=== PATIENT | male | born 1985 | race African-American/Black ===

== ENCOUNTER 2017-03-31 10:02 | Observation (INO) | payer OTHER ==
--- NOTE | ~2017-03-31 | EEG ---
PATIENT:SANFORD MARKS DATE OF SERVICE: 03/31/17 MEDICAL RECORD: [id number] DATE OF : 81 LOCATION:D.212 D.M2 ADMISSION DATE: 03/31/17 REFERRING PHYSICIAN: INTERPRETING PHYSICIAN: KAILEE OLIVO MD DATE OF SERVICE: 04/01/2017 Electroencephalographic Report Referred by Dr. Garcia as an inpatient, currently in room 2124. ELECTROENCEPHALOGRAM NUMBER: [id number]. DATE OF EXAMINATION: 04/01/2017 at 2:10 p.m. TECHNICAL DATA: This electroencephalographic recording consists of approximately 20 minutes of data collection utilizing the international 10/20 system of electrode placement and both referential and non-referential montages. Sixteen channels of electrocerebral recording are accompanied by a 17th channel dedicated to the electrocardiographic rhythm and 2 channels of electromyographic recording. Recording is performed in the awake and sleep states utilizing activation by photic stimulation. ELECTROENCEPHALOGRAPHIC DATA: The awake state comprises approximately 30% of the recorded electrocerebral activity. Electromyographic artifact is prominent and rapid eye movements are seen. The posterior dominant background consists of a symmetric, rhythmic, waxing and waning 7-8 Hz alpha activity, which is suppressed by eye opening. The drowsy state comprises approximately 20% of the recorded electrocerebral activity. Electromyographic artifact is diminished and rapid eye movements are not seen. The posterior dominant background is relatively suppressed. The transition to stage II sleep, which comprises the remaining portion of the recorded electrocerebral activity is heralded by the appearance of typical 15 Hz sleep spindles. Sharp vertex waves are also occasionally seen. An intermittent, irregular, generalized and symmetric delta slowing in the range of 2-4 Hz occurs approximately once every 1-2 pages for periods of 2-3 seconds. No abnormal or focal slowing is identified. No epileptiform discharges are seen. Photic stimulation induces no abnormal change in the recorded electrocerebral activity. INTERPRETATION: Normal (awake and asleep). This is a normal electroencephalographic recording. TRANSINT:[id number] Voice Confirmation ID: [id number] DOCUMENT ID: [id number] ELECTROENCEPHALOGRAM REPORT [id number] SANFORD MARKS KAILEE OLIVO MD CC: [id number] DICTATION DATE: 04/02/17 0614 ADJUNCT FACULTY: 04/02/17 1436 DIS IN 04/01/17 [place] [address] [place] [address]
[2017-03-31 10:29] LABS: BASOPHILS 0.2 % (0-2); EOSINOPHILS 3.8 % (0-7); HEMATOCRIT 47.3 % (42.0-54.0); HEMOGLOBIN 16.7 g/dL (13.5-17.5); IMMATURE GRANULOCYTES 0.3 % (0-5); LYMPHOCYTES 34.6 % (15-50); MCH 31.9 pg (26.0-34.0); MCHC 35.3 g/dL (31.0-37.0); MCV 90.4 fL (80.0-100.0); MEAN PLATELET VOLUME 10.9 fL (7.4-10.4); MONOCYTES 7.3 % (2-11); NEUTROPHILS 53.8 % (40-80); PLATELET COUNT 248 10x3/uL (130-400); RBC 5.23 10x6/uL (4.20-6.10); RDW 12.4 % (11.5-14.5); WBC 6.3 10x3/uL (4.8-10.8)
[2017-03-31 10:43] LABS: ALBUMIN 3.9 g/dL (3.4-5.0); ALKALINE PHOSPHATASE 80 U/L (46-116); ALT (SGPT) 42 U/L (10-68); BILIRUBIN - TOTAL 0.58 mg/dL (0.2-1.3); CALC OSMOLALITY 276 mosm/kg (275-300); CALCIUM 9.2 mg/dL (8.5-10.1); CARBON DIOXIDE 27.1 mmol/L (21.0-32.0); CHLORIDE - SERUM 102 mmol/L (98-107); CREATININE - SERUM 1.1 mg/dL (0.6-1.3); GLUCOSE 111 mg/dL (74-106); POTASSIUM - SERUM 3.4 mmol/L (3.5-5.1); PROTEIN - SERUM 8.1 g/dL (6.4-8.2); SODIUM 138 mmol/L (136-145); UREA NITROGEN 12 mg/dL (7-18); eGFR NON AFRICAN AMERICAN 81 mL/min (90-120)
[2017-03-31 10:54] LABS: TROPONIN-I < 0.017 ng/mL (0.000-0.060)
--- NOTE | 2017-03-31 14:14 | NUR ---
RECIEVED FROM ER. DENIES ANY NEEDS. CALL LIGHT IN REACH WITH SR UP. TELEMERTY SHOWS SR AT 70. SL TO LEFT FA. WILL MONITOR
[2017-03-31 16:41] VITALS: BP 125/80
--- NOTE | 2017-03-31 18:26 | NUR ---
LYING QUIETLY. DENIES ANY FUTHER DIZZINESS. TELEMERTY SHOWS SR. WILL MONITOR
[2017-03-31 22:47] VITALS: BP 142/86
--- NOTE | 2017-04-01 01:18 | NUR ---
THIS SHIFT, PT IS ALERT, AND ORIENTED X3. NEURO CHECKS UNCHANGED. RESTING QUIELTY WITHOUT COMPLAINTS
[2017-04-01 01:51] VITALS: BP 125/79
[2017-04-01 05:02] LABS: BASOPHILS 0.3 % (0-2); HEMATOCRIT 46.7 % (42.0-54.0); HEMOGLOBIN 16.3 g/dL (13.5-17.5); IMMATURE GRANULOCYTES 0.5 % (0-5); LYMPHOCYTES 35.9 % (15-50); MCH 31.9 pg (26.0-34.0); MCHC 34.9 g/dL (31.0-37.0); MCV 91.4 fL (80.0-100.0); MEAN PLATELET VOLUME 10.9 fL (7.4-10.4); MONOCYTES 7.7 % (2-11); NEUTROPHILS 49.6 % (40-80); PLATELET COUNT 236 10x3/uL (130-400); RBC 5.11 10x6/uL (4.20-6.10); RDW 12.7 % (11.5-14.5); WBC 6.5 10x3/uL (4.8-10.8)
[2017-04-01 05:13] VITALS: BP 116/75
[2017-04-01 05:33] LABS: CALC OSMOLALITY 275 mosm/kg (275-300); CALCIUM 8.9 mg/dL (8.5-10.1); CHLORIDE - SERUM 103 mmol/L (98-107); CREATININE - SERUM 1.1 mg/dL (0.6-1.3); GLUCOSE 98 mg/dL (74-106); POTASSIUM - SERUM 3.7 mmol/L (3.5-5.1); SODIUM 138 mmol/L (136-145); T4 THYROXIN - FREE 1.02 ng/dL (0.76-1.46); THYROID STIMULATING HORMONE 1.05 uIU/mL (0.36-3.74); UREA NITROGEN 13 mg/dL (7-18); eGFR NON AFRICAN AMERICAN 81 mL/min (90-120)
--- NOTE | 2017-04-01 07:10 | NUR ---
RESTING QUIETLY EYES CLOSED RESP UNLABORED NAD NOTED
--- NOTE | 2017-04-01 07:51 | NUR ---
ASSESSMENT COMPLETED. TELEMERTY SHOWS SR AT 75 . LEFT FA SL. DENIES ANY DIZZINESS. WILL MONITOR
--- NOTE | 2017-04-01 08:07 | HP ---
PATIENT: SANFORD MARKS MEDICAL RECORD: [id number] ACCOUNT: [id number] LOCATION:[address] : [birth year] ADMISSION DATE: 03/31/17 HISTORY AND PHYSICAL EXAMINATION REASON FOR ADMISSION: Pending episode. HISTORY OF PRESENT ILLNESS: The patient is a 32-year-old -[place]er male who works in [employer] at [employer]. He said he was preparing beans in the cafeteria when he did not feel good he felt lightheaded, his vision began to go and he turned around to empty some cans of beans in the trash and he fell. He said he grabbed on the sink as he fell and hit his head. He thinks he may have lost consciousness temporarily. There was no seizure activity noted. No witnesses. He now feels somewhat nauseated in the ED. Denies any previous history of syncope, though he said that when he was 7 or 8 years old, he had a heart surgery for unknown reasons. 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 Otherwise, he has been fairly healthy all of his life except for having had borderline hypertension which has never been treated for. Denies any history of head injury, seizures or loss of consciousness previously. He states he has been eating and drinking normally, has not been fatigued or overexerted. 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 PAST SURGICAL HISTORY: He had some type of chest procedure done on his heart and he is not sure what it was. ALLERGIES: PENICILLIN. MEDICATION: Takes Claritin p.r.n. SOCIAL HISTORY: Nonsmoker, nondrinker. He is single and works in [employer]. He is a high school graduate. FAMILY HISTORY: Mother with hypertension, CHF, she is 60 years old. Father's health is fine as far as he knows. Paternal grandfather had heart disease. Paternal aunt had diabetes. REVIEW OF SYSTEMS: GENERAL: He has felt well until today. He has had no fever, weight change or loss of appetite. HEENT: No recent visual change. He has had sinus congestion, no sore throat. Has a little bit of right frontal headache since his fall. Denies hearing loss. RESPIRATORY: Occasional shortness of breath when he exerts himself, but no cough, sputum production or history of severe lung disease. CARDIAC: No recent palpitations, claudication or exertional chest pain. GASTROINTESTINAL: No nausea, vomiting, change in stool, blood per rectum. GENITOURINARY: No incontinence, dysuria or nocturia. MUSCULOSKELETAL: Does complain of intermittent cervical neck pain and previous CT did show some C4-C5 degenerative disc disease and osteophytes. He has no radiculopathy. NEUROLOGIC: No Prior history of vascular headaches, loss of consciousness, head injury, seizures. HISTORY AND PHYSICAL [id number] SANFORD MARKS INTEGUMENT: No rash or itching. PSYCHIATRIC: Denies depressed mood. PHYSICAL EXAMINATION: GENERAL: Alert 32-year-old -[place]er male at this time in no distress. He is supine in the ED, has some mild nausea. VITAL SIGNS: Heart rate is 60 and regular, respirations are 18, and sat 100% on room air, blood pressure 140/104. GENERAL: Alert and oriented. HEENT: Normocephalic. He has slight bruising over his right frontal scalp. Eyes: Pupils are equal, reactive. Disks are sharp. EOMI, vision intact. Oropharynx unremarkable. NECK: Supple, without bruits or masses. CHEST: Clear. HEART: Regular rate without MGR. PMI appropriate. He has a healed 1 inch scar underneath his left breast from previous chest surgery appears. LUNGS: Clear throughout. ABDOMEN: Soft, nontender, no organomegaly. GENITOURINARY: Deferred. EXTREMITIES: No CC&E. NEUROLOGIC: He is oriented to person, place, and time. Memory is intact. He has good layer out plate glass in his upper extremities. Good strength in his lower extremities. No localizing neurological or motor deficits are appreciated. Sensory is intact. PSYCHIATRIC: Denies depress mood. LABORATORY DATA: White count 6300 with normal diff, platelet count 248,000, H&H is 16.7 and 47.3. Potassium is low at 3.4, sodium 134, BUN and creatinine are 12 and 1.1, glucose 111. Liver function normal. AST of 59, mildly elevated. Urinalysis is pending. EKG: Sinus rhythm. CT of the head is normal. CT of the C-spine shows reversal of the cervical curve. At C3-C4, there is prominent left paracentral disc protrusion and osteophyte formation causing moderate left greater than right spinal canal narrowing. ASSESSMENT: 1. Near syncopal episode. 2. C3-C4 paracentral disc protrusion osteophyte formation, hypokalemia, questionable history of arrhythmia, over ideal body weight, allergic rhinitis. PLAN: The patient will be admitted to cardiac monitored floor and obtain echocardiogram to rule out cardiac abnormalities. We will replace potassium. Treat hypertension if indicated. Further workup pending clinical course. TRANSINT:[id number] Voice Confirmation ID: [id number] DOCUMENT ID: [id number] HISTORY AND PHYSICAL [id number] SANFORD MARKS TIMOTHY MD at 0807 CC: [id number] DICTATION DATE: 03/31/17 1355 ENROLLMENT SERVICES DEAN: 03/31/17 1801 ADM IN [place] [id number] [place] [address]
[2017-04-01 08:25] VITALS: BP 155/97
--- NOTE | 2017-04-01 08:26 | CN ---
PATIENT NAME:SANFORD MARKS MEDICAL RECORD: [id number] : 81 LOCATION:[facility].2124 ADMIT DATE: 03/31/17 ACCOUNT: [id number] CONSULTING PHYSICIAN: SAROJ LEE MD REFERRING PHYSICIAN: TROY SIFUENTES MD DATE OF CONSULTATION: 03/31/2017 HISTORY OF PRESENT ILLNESS: A 32-year-old gentleman with no significant past medical history, who was at work today, was cooking and had a syncopal episode. He felt somewhat nauseated and queasy, reports of not feeling well for the past couple of days. No palpitations or flutter prior. We are asked to see him concerning his cardiovascular status. PAST MEDICAL HISTORY: Nonsignificant. SOCIAL HISTORY: He lives here in [place]. He is a nonsmoker, works. No illicit drug use. MEDICATIONS: No prescription medicines. ALLERGIES: PENICILLIN. REVIEW OF SYSTEMS: The patient reports easy bruising but reports no swollen glands. The patient reports no fever, no night sweats, no significant weight gain, no significant weight loss. No significant exercise tolerance. The patient reports no dry eyes, no irritation, no vision change. Patient reports no difficulty hearing and no ear pain. Patient reports no frequent nose bleeds or nose and sinus problems. Patient reports on arm pain on exertion. No shortness of breath while lying down. No history of heart murmur. Patient reports no cough, no wheezing or coughing up blood. Patient reports no abdominal pain, no vomiting. Normal appetite. No diarrhea and not vomiting blood. No nausea and no constipation. Patient reports no incontinence. No difficulty urinating. No hematuria. No increased frequency. Patient reports no muscle aches. No weakness, no arthralgias, no back pain. No swelling of the extremities. Patient reports no abnormal mole, no jaundice, no rashes. Reports no loss of consciousness. No weakness and no numbness. No seizures, dizziness, or headaches. The patient reports no depression, no sleep disturbance, feeling safe in a relationship and no alcohol abuse. Patient reports on fatigue. Reports no runny nose or sinus pressure. No itching, no hives, and no frequent sneezing. PHYSICAL EXAMINATION: GENERAL: Pleasant gentleman, in no acute distress. VITAL SIGNS: Blood pressure 118/64, pulse 64 and regular. HEENT: Normocephalic, atraumatic. NECK: No JVD or bruit. HEART: Regular. LUNGS: Jordan are clear. ABDOMEN: Soft, nontender. EXTREMITIES: Pulses 2+. No edema. NEUROLOGIC: Grossly intact. DIAGNOSTIC DATA: ECG without acute changes. Echocardiographic study was reviewed, this shows normal LV function with no significant pathology. Both studies are normal. CONSULT REPORT [id number] SANFORD MARKS IMPRESSION: Syncope. I agree with current management. I suspect vasovagal historically. Further recommendations based on clinical course. TRANSINT:[id number] Voice Confirmation ID: [id number] DOCUMENT ID: [id number] SAROJ LEE MD at 0826 CC: [id number] DICTATION DATE: 03/31/17 1547 SCHOOL ATHLETIC DIRECTOR: 04/01/17 0044 ADM IN [facility] [address] [place] [address]
[2017-04-01 11:30] VITALS: BP 117/69; BP 143/93
[2017-04-01 12:42] LABS: APPEARANCE CLEAR (CLEAR); BILIRUBIN NEGATIVE (NEGATIVE); COLOR YELLOW (YELLOW); GLUCOSE NEGATIVE (NEGATIVE); KETONE NEGATIVE (NEGATIVE); LEUKOCYTE ESTERASE TRACE (NEGATIVE); NITRITE NEGATIVE (NEGATIVE); PROTEIN NEGATIVE (NEGATIVE); SPECIFIC GRAVITY 1.015 (1.005-1.020); UROBILINOGEN NORMAL (NORMAL)
[2017-04-01 12:43] LABS: BACTERIA FEW /hpf (NONE SEEN); EPITHELIAL CELLS 0-5 /hpf (0-5); MUCUS >1+ /lpf (NONE SEEN); RED CELLS - URINE RARE /hpf (0-5)
[2017-04-01 12:50] LABS: UDS - AMPHET NEGATIVE QUAL (NEGATIVE); UDS - BARB NEGATIVE QUAL (NEGATIVE); UDS - BENZO NEGATIVE QUAL (NEGATIVE); UDS - COCAINE NEGATIVE QUAL (NEGATIVE); UDS - METH NEGATIVE QUAL (NEGATIVE); UDS - OPIATE NEGATIVE QUAL (NEGATIVE); UDS - PCP NEGATIVE QUAL (NEGATIVE); UDS - THC NEGATIVE QUAL (NEGATIVE)
--- NOTE | 2017-04-01 13:21 | NUR ---
WALKING IN HALLWAY. DENIES ANY NEEDS. BACK TO ROOM WITH CALL LIGHT IN REACH AND SR UP
--- NOTE | 2017-04-01 16:36 | EC ---
PATIENT:SANFORD MARKS DATE OF SERVICE: 03/31/17 SEX: M MEDICAL RECORD: [id number] DATE OF : [birth year] LOCATION:D.M2 D.212 AGE OF PATIENT: 32 ADMISSION DATE: 03/31/17 REFERRING PHYSICIAN: INTERPRETING PHYSICIAN: OFELIA VELIZ MD ECHOCARDIOGRAM REPORT ECHO CHARGES 4 ECHO COMPLETE CLINICAL DIAGNOSIS: BUBBLE STUDY TO ASSESS FOR SEPTAL DEFECTS DUE TO SYNCOPE AND HX OF PEDIATRIC HEART SURGERY ECHOCARDIOGRAPHIC MEASUREMENTS (adult normal given) AC root (d.<3.7cm) 3.4 LV Septum d (<1.2 cm> 1.3 Valve Excursion LV Septum (systole) 1.4 Left Atria (s.<4.0cm> 3.4 LVPW d(<1.2cm) 1.7 RV (d.<2.3cm) 3.5 LVPW (sytole) 1.8 LV diastole(<5.6CM) 4.2 MV E-F(>70mm/sec) LV systole 3.0 LVOT Diameter 1.6 MV exc.(>10mm) 1.3 Est.ejection fraction (50-75%) Pericardial Effusion N DOPPLER: LVIT A 56.0 E 87.0 LA RVSP 28 LVOT 104 AOP1/2T Asc. Ao 124 RVOT 49 RA PA 119 AV Gradient Peak 6.16 AV Mean 3.57 AV Area 1.7 MV Gradient Peak 5.0 MV Mean 1.37 MV Area COMMENTS: Audio Visual Collections Coordinator: Ronnie MALIK Strategic Planning Analyst:Dona Velasquez TAPE# PACS DATE OF SERVICE: 03/31/2017 Echocardiogram FINDINGS: 1. Left ventricle chamber size is within normal limits. Left ventricular systolic function is normal. Overall ejection fraction estimated at 60%. 2. Left atrium is within normal limits at 3.6 cm. Right atrium and right ECHOCARDIOGRAM REPORT [id number] SANFORD MARKS ventricular chamber sizes are mildly dilated. 3. Valvular structures have normal structure and motion. 4. Doppler interrogation only reveals trace mitral regurgitation, mild tricuspid regurgitation, no other valvular insufficiency or stenosis. Pulmonary systolic pressure is normal estimated at 28 mmHg. 5. No evidence of pericardial effusion or left ventricular thrombus. 6. Bubble study was performed, this is normal, no evidence of right to left or left to right shunt. TRANSINT:[id number] Voice Confirmation ID: [id number] DOCUMENT ID: [id number] OFELIA VELIZ MD at 1636 CC: [id number] DICTATION DATE: 03/31/17 1629 TOOL STRAIGHTENER: 03/31/17 1714 ADM IN [place] [id number] [place] [id number]
--- NOTE | 2017-04-01 16:37 | NUR ---
REFUSES SCD'S. UP AMBULATING HALLWAYS
[2017-04-01] MEDS ORDERED: ZESTRIL10 MG PO (17:48)
--- NOTE | 2017-04-01 18:27 | NUR ---
LYING QUIETLY. DR SIFUENTES HERE. WILL MONITOR
--- NOTE | 2017-04-01 20:51 | NUR ---
IV- REMOVED, CATH. INTACT, TELEMTRY, REMOVED, DISCHARGE INSTRUCTION GIVEN, DISCHARGED HOME
== END 2017-04-01 20:53 | disposition home or self-care (01) ==
LOC: D.ER 10:02 → D.M2 12:43 → OBSVTIME 12:43 → D.M2 12:43
PROVIDERS: Emergency Medicine; ADMIT Family Medicine
DX: R55 Syncope and collapse (principal); W18.39XA Other fall on same level, initial encounter; E87.6 Hypokalemia; J30.9 Allergic rhinitis, unspecified; M50.21 Other cervical disc displacement, high cervical region; M25.78 Osteophyte, vertebrae

== ENCOUNTER 2019-01-18 02:35 | Inpatient (IN) | payer SELFPAY ==
[2019-01-18] VITALS (7 sets, daily range): BP systolic 128–176; BP diastolic 83–106; BMI 35.3
[~2019-01-18] VITALS: Ht 170.2 cm; Wt 102.1 kg
[~2019-01-18 02:35] MED LIST: ZESTRIL10 MG PO
[2019-01-18 03:25] LABS: BASOPHILS 0.1 % (0-2); HEMATOCRIT 42.7 % (42.0-54.0); IMMATURE GRANULOCYTES 0.2 % (0-5); LYMPHOCYTES 18.2 % (15-50); MCH 31.4 pg (26.0-34.0); MCHC 35.1 g/dL (31.0-37.0); MCV 89.3 fL (80.0-100.0); MEAN PLATELET VOLUME 10.4 fL (7.4-10.4); MONOCYTES 3.6 % (2-11); NEUTROPHILS 76.9 % (40-80); PLATELET COUNT 241 10x3/uL (130-400); RBC 4.78 10x6/uL (4.20-6.10); RDW 12.7 % (11.5-14.5); WBC 8.3 10x3/uL (4.8-10.8)
[2019-01-18 03:40] LABS: APTT 24.3 SECONDS (22.8-39.4); INR 1.06 (0.85-1.17); PROTIME 13.3 SECONDS (11.6-15.0)
[2019-01-18 03:48] LABS: ALBUMIN 3.9 g/dL (3.4-5.0); ALKALINE PHOSPHATASE 82 U/L (46-116); ALT (SGPT) 48 U/L (10-68); BILIRUBIN - TOTAL 0.28 mg/dL (0.2-1.3); CALC OSMOLALITY 283 mosm/kg (275-300); CALCIUM 8.7 mg/dL (8.5-10.1); CARBON DIOXIDE 24.8 mmol/L (21.0-32.0); CHLORIDE - SERUM 103 mmol/L (98-107); CREATININE - SERUM 1.3 mg/dL (0.6-1.3); GLUCOSE 194 mg/dL (74-106); POTASSIUM - SERUM 3.6 mmol/L (3.5-5.1); PROTEIN - SERUM 8.1 g/dL (6.4-8.2); SODIUM 140 mmol/L (136-145); UREA NITROGEN 13 mg/dL (7-18); eGFR NON AFRICAN AMERICAN 67 mL/min (90-120)
[2019-01-18 04:01] LABS: CKMB 14.1 U/L (0.0-3.6); MAGNESIUM - SERUM 1.8 mg/dL (1.8-2.4)
[2019-01-18 04:02] LABS: CREATINE KINASE 8023 UL (21-232); TROPONIN-I < 0.017 ng/mL (0.000-0.060)
--- NOTE | 2019-01-18 07:10 | NUR ---
AWAKE AND ALERT. SITTING ON THE SIDE OF THE BED. STATE THAT HE IS STILL HURTING AND HAVING INCREASED PAIN WITH MINIMUM MOVEMENT. VVS. PIV TO RAC PATENT. 2ND BAG OF NS BOLUS COMPLETE. NEW BAG OF NS STARTED PER ORDERS TO RUN AT 125 ML/HR. COMFIRMED WITH PT THAT LAST MORPHINE DOSE WAS AT 0347 AND HAS BEEN ORDERED FOR Q4HRS. HE AND HIS FATHER UNDERSTAND THAT NEXT DOSE CAN BE AT 0747. HE REPORTS SOME IMPROVEMENT AND CURRENTLY RATES PAIN AT 7/10. AWAITING ROOM ASSIGNMENT FOR ADMISSION.
--- NOTE | 2019-01-18 08:45 | NUR ---
RECEIVED TO ROOM 2203 VIA WC FROM ER. A/O X3. C/O PAIN TO LEFT NECK AND SHOULDER. WAS GIVEN MORPHINE IN ER. WILL MONITOR. SKIN IS INTACT WITHOUT REDNESS. IV TO RIGHT AC IS PATENT WITHOUT REDNESS AT INSERTION SITE. BREAKFAST SERVED IN ROOM. ATE ONLY A FEW BITES. DENIES NEEDS. BP IS ELEVATED, WILL MONITOR.
--- NOTE | 2019-01-18 18:00 | NUR ---
ATE PART OF SOUP FOR SUPPER. KEPT TRAY FOR LATER. URINE SPECIMEN COLLECTED AND SENT TO LAB.
[2019-01-18 18:46] LABS: UDS - AMPHET NEGATIVE QUAL (NEGATIVE); UDS - BARB NEGATIVE QUAL (NEGATIVE); UDS - BENZO NEGATIVE QUAL (NEGATIVE); UDS - COCAINE NEGATIVE QUAL (NEGATIVE); UDS - OPIATE POSITIVE QUAL (NEGATIVE); UDS - PCP NEGATIVE QUAL (NEGATIVE); UDS - THC NEGATIVE QUAL (NEGATIVE)
[2019-01-19] VITALS: BP 170/99
--- NOTE | 2019-01-19 03:00 | NUR ---
I have reviewed this patient and I concur with the Shift Assessment completed by the Licensed Practical Nurse today this shift.
[2019-01-19 03:52] LABS: BASOPHILS 0 % (0-2); EOSINOPHILS 0 % (0-7); HEMATOCRIT 40.6 % (42.0-54.0); HEMOGLOBIN 14.1 g/dL (13.5-17.5); IMMATURE GRANULOCYTES 0.2 % (0-5); LYMPHOCYTES 10.7 % (15-50); MCH 31.4 pg (26.0-34.0); MCHC 34.7 g/dL (31.0-37.0); MCV 90.4 fL (80.0-100.0); MEAN PLATELET VOLUME 10.2 fL (7.4-10.4); MONOCYTES 5.2 % (2-11); NEUTROPHILS 83.9 % (40-80); PLATELET COUNT 250 10x3/uL (130-400); RBC 4.49 10x6/uL (4.20-6.10)
[2019-01-19 03:54] LABS: WBC 15.9 10x3/uL (4.8-10.8)
[2019-01-19 04:00] VITALS: BP 186/107
[2019-01-19 04:16] LABS: ALBUMIN 3.3 g/dL (3.4-5.0); ALKALINE PHOSPHATASE 72 U/L (46-116); ALT (SGPT) 50 U/L (10-68); BILIRUBIN - TOTAL 0.25 mg/dL (0.2-1.3); CALCIUM 7.9 mg/dL (8.5-10.1); CARBON DIOXIDE 23.5 mmol/L (21.0-32.0); CHLORIDE - SERUM 106 mmol/L (98-107); CKMB 29.7 U/L (0.0-3.6); POTASSIUM - SERUM 4.1 mmol/L (3.5-5.1); PROTEIN - SERUM 7.3 g/dL (6.4-8.2); SODIUM 139 mmol/L (136-145); UREA NITROGEN 13 mg/dL (7-18)
[2019-01-19 04:18] LABS: CALC OSMOLALITY 278 mosm/kg (275-300); CREATINE KINASE 6471 UL (21-232); CREATININE - SERUM 0.9 mg/dL (0.6-1.3); GLUCOSE 118 mg/dL (74-106); eGFR NON AFRICAN AMERICAN > 90 mL/min (90-120)
[2019-01-19 08:06] VITALS: BP 168/126
--- NOTE | 2019-01-19 08:43 | NUR ---
RESTING QUIETLY IN BED. DENIES NEEDS. LUNGS ARE CLEAR BIALTERALLY, NO COUGH NOTED.SKIN IS INTACT WITHOUT REDNESS. IV TO RIGHT AC IS PATENT WITHOUT REDNESS AT INSERTION SITE. ABLE TO MOVE LEFT ARM FORWARD THIS AM. DENIES NEEDS.
--- NOTE | 2019-01-19 09:00 | NUR ---
BP IS 154/130. GIVEN SCHEDULED LISINIPRIL PO. WILL MONITOR.
--- NOTE | 2019-01-19 10:10 | NUR ---
REQUESTED AND GIVEN 4MG MORPHIINE SLOW IVP FOR C/O LEFT SHOULDER NECK PAIN LEVEL 8. WILL MONITOR.
--- NOTE | 2019-01-19 10:15 | NUR ---
BP IS UP TO 172/105. SPOKE WITH PROSPER JOHNSON APN. ADONAY LOYD FOR NORVASC. GIVEN 10MG PO FOR SAME. WILL MONITOR.
[2019-01-19 10:23] VITALS: BMI 35.2
--- NOTE | 2019-01-19 11:00 | NUR ---
BP DOWN TO 145/93. REPORTS PAIN IMPROVED TO 4. WILL CONTINUE TO MONITOR.
[2019-01-19 12:53] VITALS: BP 173/112
--- NOTE | 2019-01-19 14:20 | NUR ---
ATE OVER HALF OF LUNCH. BP IS UP TO 173/112. REQUESTED AND GIVEN 4 MG MORPHINE SLOW IVP FOR PAIN LEVEL 10. WILL MONITOR. SISTER AT BEDSIDE.
[2019-01-19 15:50] VITALS: BP 169/108
--- NOTE | 2019-01-19 18:31 | NUR ---
SITTING UP IN BED EATING SECOND DINNER. DENIES NEEDS. NO CHANGES NOTED. DR. ZHU WAS AWARE OF ELEVATED BP AND NEW ORDERS RECEIVED.
--- NOTE | 2019-01-19 18:37 | NUR ---
REQUESTED AND GIVEN ONE HYDROCODONE PO FOR C/O LEFT SHOULEDER PAIN LEVLE 8. WILL MONITOR.
[2019-01-19 20:00] VITALS: BP 158/96
[2019-01-19 20:11] LABS: APPEARANCE CLEAR (CLEAR); COLOR STRAW (YELLOW)
[2019-01-19 20:12] LABS: BILIRUBIN NEGATIVE (NEGATIVE); GLUCOSE NEGATIVE (NEGATIVE); KETONE NEGATIVE (NEGATIVE); NITRITE NEGATIVE (NEGATIVE); PROTEIN NEGATIVE (NEGATIVE); UROBILINOGEN NORMAL (NORMAL)
[2019-01-20] VITALS: BP 149/105
[2019-01-20 04:00] VITALS: BP 157/110
[2019-01-20 05:43] LABS: BASOPHILS 0.2 % (0-2); EOSINOPHILS 1.2 % (0-7); HEMATOCRIT 41.8 % (42.0-54.0); HEMOGLOBIN 14.3 g/dL (13.5-17.5); IMMATURE GRANULOCYTES 0.4 % (0-5); LYMPHOCYTES 27.3 % (15-50); MCH 31.2 pg (26.0-34.0); MCHC 34.2 g/dL (31.0-37.0); MCV 91.3 fL (80.0-100.0); MEAN PLATELET VOLUME 11.2 fL (7.4-10.4); MONOCYTES 6.9 % (2-11); PLATELET COUNT 245 10x3/uL (130-400); RBC 4.58 10x6/uL (4.20-6.10); RDW 13.2 % (11.5-14.5); WBC 12.2 10x3/uL (4.8-10.8)
--- NOTE | 2019-01-20 06:00 | NUR ---
I have reviewed this patient and I concur with the Shift Assessment completed by the Licensed Practical Nurse today this shift.
[2019-01-20 06:34] LABS: CALC OSMOLALITY 278 mosm/kg (275-300); CALCIUM 7.9 mg/dL (8.5-10.1); CARBON DIOXIDE 24.9 mmol/L (21.0-32.0); CHLORIDE - SERUM 105 mmol/L (98-107); CKMB 22.4 U/L (0.0-3.6); CREATININE - SERUM 0.9 mg/dL (0.6-1.3); GLUCOSE 95 mg/dL (74-106); POTASSIUM - SERUM 3.7 mmol/L (3.5-5.1); SODIUM 140 mmol/L (136-145); UREA NITROGEN 12 mg/dL (7-18); eGFR NON AFRICAN AMERICAN > 90 mL/min (90-120)
[2019-01-20 06:35] LABS: CREATINE KINASE 7198 UL (21-232)
--- NOTE | 2019-01-20 08:04 | NUR ---
PT ALERT X 4. BREATH SOUNDS CLEAR BILAT. PAIN OF 8/10, PREVIOUSLY MEDICATED PER ORDERS, WILL MONITOR. IV TO LEFT AC, PATENT, DRESSING CLEAN DRY AND INTACT. PT REPORTS URINATING REGULARLY. BED LOW, CALL LIGHT IN REACH. NO OTHER NEEDS AT THIS TIME.
[2019-01-20 08:05] LABS: ALBUMIN 3.3 g/dL (3.4-5.0); BILIRUBIN - DIRECT 0.06 mg/dL (0.00-0.30); BILIRUBIN - INDIRECT 0.09 mg/dL (0.00-1.00); BILIRUBIN - TOTAL 0.15 mg/dL (0.2-1.3); PROTEIN - SERUM 6.9 g/dL (6.4-8.2)
[2019-01-20 08:22] VITALS: BP 167/115
[2019-01-20 10:17] VITALS: Ht 170.2 cm; Wt 102.1 kg
[2019-01-20 13:59] VITALS: BP 151/106
[2019-01-20 17:13] VITALS: BP 148/98
--- NOTE | 2019-01-20 19:30 | NUR ---
PT SITTING UP IN BED, NO SIGNS OF DISTRESS. ALERT AND ORIENTED. PT STATES PAIN 5/10. DENIES NEED FOR PAIN MED AT THIS TIME, PREVIOUSLY MEDICATED BEFORE THIS NURSE RECIEVED PT. IV RIGHT AC INFUSING BICARB @ 150. NO REDNESS OR SWELLING AT INSERTION SITE, DRESSING CDI. FAMILY AT BEDSIDE. CL IN REACH, WILL CONTINUE TO MONITOR
[2019-01-20 19:54] VITALS: BP 153/103
--- NOTE | 2019-01-20 20:30 | NUR ---
PT STATES PAIN 06/30. GAVE NORCO ORDERED. STATES NO OTHER NEEDS AT THIS TIME. CL IN REACH, WILL CONTINUE TO MONITOR
[2019-01-21] VITALS: BP 150/97
--- NOTE | 2019-01-21 00:15 | NUR ---
PT STATES PAIN 10/10 IN SHOULDER. GAVE MORPHINE ORDERED. WILL CONTINUE TO MONITOR
--- NOTE | 2019-01-21 03:40 | NUR ---
ASSISTED PT W/ SHOWER SET UP. PT SHOWERED. PAIN 07/31 AFTER. GAVE NORCO ORDERED. NO OTHER NEEDS OR COMPLAINTS AT THIS TIME. CL IN REACH, WILL CONTINUE TO MONITOR
[2019-01-21 03:58] VITALS: BP 168/115
[2019-01-21 06:32] LABS: BASOPHILS 0.2 % (0-2); EOSINOPHILS 1.7 % (0-7); HEMATOCRIT 40.9 % (42.0-54.0); HEMOGLOBIN 13.9 g/dL (13.5-17.5); IMMATURE GRANULOCYTES 0.4 % (0-5); LYMPHOCYTES 32.9 % (15-50); MCH 30.9 pg (26.0-34.0); MCV 90.9 fL (80.0-100.0); MEAN PLATELET VOLUME 11.2 fL (7.4-10.4); MONOCYTES 8.9 % (2-11); NEUTROPHILS 55.9 % (40-80); PLATELET COUNT 242 10x3/uL (130-400); WBC 9.2 10x3/uL (4.8-10.8)
[2019-01-21 07:14] LABS: CALC OSMOLALITY 278 mosm/kg (275-300); CALCIUM 8.2 mg/dL (8.5-10.1); CARBON DIOXIDE 27.5 mmol/L (21.0-32.0); CHLORIDE - SERUM 104 mmol/L (98-107); CKMB 13.1 U/L (0.0-3.6); CREATINE KINASE 7384 UL (21-232); CREATININE - SERUM 0.9 mg/dL (0.6-1.3); GLUCOSE 95 mg/dL (74-106); POTASSIUM - SERUM 3.3 mmol/L (3.5-5.1); SODIUM 140 mmol/L (136-145); UREA NITROGEN 12 mg/dL (7-18); eGFR NON AFRICAN AMERICAN > 90 mL/min (90-120)
[2019-01-21 08:42] VITALS: BP 155/114
--- NOTE | 2019-01-21 08:44 | NUR ---
PT ALERT X 4. BREATH SOUNDS CLEAR BILAT. STIFFNESS TO LEFT SHOULDER. PAIN 8/10, WILL MONITOR. BED LOW, CALL LIGHT IN REACH. NOT OTHER NEEDS AT THIS TIME.
[2019-01-21 13:07] VITALS: BP 199/138
[2019-01-21 18:17] VITALS: BP 108/59
--- NOTE | 2019-01-21 19:40 | NUR ---
PT SITTING UP IN BED W/O DISTRESS. ALERT AND ORIENTED. PT STATES PAIN 5/10 AT THIS TIME, RECIEVED PAIN MED BEFORE THIS NURSE RECIEVED PT. WILL MONITOR. IV RIGHT HAND INFUSING BICARB @ 50. NO REDNESS OR SWELLING AT INSERTION SITE, DRESSING CDI. DENIES NEEDS AT THIS TIME. CL IN REACH
[2019-01-21 21:04] VITALS: BP 130/76
[2019-01-22 04:32] LABS: BASOPHILS 0.2 % (0-2); HEMATOCRIT 42.1 % (42.0-54.0); HEMOGLOBIN 14.7 g/dL (13.5-17.5); IMMATURE GRANULOCYTES 0.3 % (0-5); LYMPHOCYTES 32.2 % (15-50); MCH 31.9 pg (26.0-34.0); MCHC 34.9 g/dL (31.0-37.0); MCV 91.3 fL (80.0-100.0); MEAN PLATELET VOLUME 10.3 fL (7.4-10.4); MONOCYTES 7.7 % (2-11); NEUTROPHILS 56.6 % (40-80); PLATELET COUNT 245 10x3/uL (130-400); RBC 4.61 10x6/uL (4.20-6.10); RDW 12.9 % (11.5-14.5); WBC 9.3 10x3/uL (4.8-10.8)
[2019-01-22 04:36] VITALS: BP 138/91
[2019-01-22 05:06] LABS: CALC OSMOLALITY 282 mosm/kg (275-300); CALCIUM 8.8 mg/dL (8.5-10.1); CARBON DIOXIDE 30.1 mmol/L (21.0-32.0); CHLORIDE - SERUM 103 mmol/L (98-107); CKMB 8.6 U/L (0.0-3.6); GLUCOSE 108 mg/dL (74-106); POTASSIUM - SERUM 3.9 mmol/L (3.5-5.1); SODIUM 141 mmol/L (136-145); UREA NITROGEN 15 mg/dL (7-18); eGFR NON AFRICAN AMERICAN 90 mL/min (90-120)
[2019-01-22 05:22] LABS: CREATINE KINASE 7054 UL (21-232)
--- NOTE | 2019-01-22 07:15 | NUR ---
MORNING ASSESSMENT COMPLETE. SEE ASSESSMENT FLOWSHEET FOR FURTHER DETAILS. PT LYING IN BED AAO X4 TO PERSON, PLACE, TIME, AND SITUATION. DENIES NEEDS AT THIS TIME. C/O L SHOULDER PAIN- WILL GIVE PAIN MED. CL IN REACH.
[2019-01-22 07:58] VITALS: BP 114/70
--- NOTE | 2019-01-22 11:00 | MORECARE ---
CASE MANAGEMENT DISCHARGE SUMMARY PATIENT: SANFORD MARKS UNIT: [id number] ADM DATE: 01/19/19 AGE: 33 : 81 SEX: M ROOM/BED: D.2203 AUTHOR: KEENAN PATEL PHYSICIAN: REFERRING PHYSICIAN: BONITA ZHU MD DATE OF SERVICE: 01/22/19 Discharge Plan Patient Name: SANFORD MARKS [facility] [facility] 1985 Planned Disposition: Home Anticipated Discharge Date: Discharge Date: Expected LOS: Initial Reviewer: [email or web address] Initial Review Date: 01/18/2019 Generated: 01/22/19 12:00 pm Comments DCP- Discharge Planning Updated by [email or web address]: Lucinda Randall on 01/21/19 5:[address] LATE ENTRY PATIENT REQUESTED THIS EARLY PM TO SEE WAD IMPREGNATOR. VISITED AT THE BEDSIDE. HE WANTED TO BEGIN PAPERWORK FOR MEDICAID. CM ADVISED MED DATA WILL ASSIST . TC TO MED DATA . SPOKE WITH HUMA. SHE STATES THE PATIENT IS OVER RESOURCE. PATIENT B/P HAS BEEN INCREASING. PRIMARY NURSE REPORTS IT WAS 199/138. CM DID NOT DISCUSS MED DATA INFORMATION AT THIS TIME. HE IS VERY CONCERNED ABOUT INSURANCE. DID NOT WISH TO CONTRIBUTE ANY ADDITIONAL STRESS. Patient Name: SANFORD MARKS Page [id number] at 1100 All edits/amendments must be made on the electronic document DICTATION DATE: 01/22/19 1100 TALENT DEVELOPMENT SPECIALIST: KEVIN 01/22/19 1100 RPT#: [id number] DC DATE: STATUS: ADM IN [facility] [address] [place] [address] END OF REPORT
[2019-01-22 12:22] VITALS: BP 115/60
--- NOTE | 2019-01-22 13:59 | MORECARE ---
CASE MANAGEMENT DISCHARGE SUMMARY PATIENT: SANFORD MARKS UNIT: [id number] ADM DATE: 01/19/19 AGE: 33 : 81 SEX: M ROOM/BED: D.2203 AUTHOR: KEENAN PATEL PHYSICIAN: REFERRING PHYSICIAN: BONITA ZHU MD DATE OF SERVICE: 01/22/19 Discharge Plan Patient Name[facility] SANFORD MARKS [facility] [facility] 1985 Planned Disposition: Home Anticipated Discharge Date: Discharge Date: Expected LOS: Initial Reviewer: [email or web address] Initial Review Date: 01/18/2019 Generated: 01/22/19 2:59 pm Comments DCP- Discharge Planning Updated by [id number]: Lucinda Randall on 01/21/19 5:[address] LATE ENTRY PATIENT REQUESTED THIS EARLY PM TO SEE PENOLOGY PROFESSOR. VISITED AT THE BEDSIDE. HE WANTED TO BEGIN PAPERWORK FOR MEDICAID. CM ADVISED MED DATA WILL ASSIST . TC TO MED DATA . SPOKE WITH HUMA. SHE STATES THE PATIENT IS OVER RESOURCE. PATIENT B/P HAS BEEN INCREASING. PRIMARY NURSE REPORTS IT WAS 199/138. CM DID NOT DISCUSS MED DATA INFORMATION AT THIS TIME. HE IS VERY CONCERNED ABOUT INSURANCE. DID NOT WISH TO CONTRIBUTE ANY ADDITIONAL STRESS. Last DP export: 01/22/19 10:00 am Patient Name: SANFORD MARKS Page [id number] at 1359 All edits/amendments must be made on the electronic document DICTATION DATE: 01/22/19 1358 MANAGER GENERAL: KEVIN 01/22/19 1358 RPT#: [id number] DC DATE: STATUS: ADM IN [facility] [address] [place] [address] END OF REPORT
[2019-01-22 16:00] VITALS: BP 109/56
[2019-01-22 22:13] VITALS: BP 131/62
[2019-01-23 04:52] LABS: BASOPHILS 0.2 % (0-2); EOSINOPHILS 3.3 % (0-7); HEMATOCRIT 41.4 % (42.0-54.0); HEMOGLOBIN 14.2 g/dL (13.5-17.5); IMMATURE GRANULOCYTES 0.6 % (0-5); LYMPHOCYTES 32.7 % (15-50); MCH 31.3 pg (26.0-34.0); MCHC 34.3 g/dL (31.0-37.0); MCV 91.2 fL (80.0-100.0); MEAN PLATELET VOLUME 10.5 fL (7.4-10.4); MONOCYTES 7.5 % (2-11); NEUTROPHILS 55.7 % (40-80); PLATELET COUNT 260 10x3/uL (130-400); RBC 4.54 10x6/uL (4.20-6.10); RDW 12.9 % (11.5-14.5); WBC 8.5 10x3/uL (4.8-10.8)
[2019-01-23 05:18] VITALS: BP 115/71
[2019-01-23 05:19] LABS: CALC OSMOLALITY 279 mosm/kg (275-300); CALCIUM 8.8 mg/dL (8.5-10.1); CARBON DIOXIDE 31.1 mmol/L (21.0-32.0); CHLORIDE - SERUM 101 mmol/L (98-107); CKMB 4.1 U/L (0.0-3.6); CREATININE - SERUM 1.1 mg/dL (0.6-1.3); GLUCOSE 107 mg/dL (74-106); POTASSIUM - SERUM 3.7 mmol/L (3.5-5.1); SODIUM 140 mmol/L (136-145); UREA NITROGEN 16 mg/dL (7-18); eGFR NON AFRICAN AMERICAN 81 mL/min (90-120)
[2019-01-23 05:31] LABS: CREATINE KINASE 4305 UL (21-232)
--- NOTE | 2019-01-23 07:15 | NUR ---
MORNING ASSESSMENT COMPLETE. SEE ASSESSMENT FOR FURTHER DETAILS. PT LYING IN BED AAO X4 TO PERSON, PLACE, TIME, AND SITUIATION. DENIES NEEDS AT THIS TIME. CL IN REACH. SIDE RAILS UP X3 FOR PATIENT DIALLO
[2019-01-23 09:17] VITALS: BP 116/77
[2019-01-23 12:45] VITALS: BP 113/69
[2019-01-23] MEDS ORDERED: NORCO-10 PO (12:51)
[2019-01-23] MEDS ORDERED: NORVASC10 MG PO (12:51)
[2019-01-23] MEDS ORDERED: ACETAMINOPHEN325 MG PO (12:51)
[2019-01-23] MEDS ORDERED: LISINOPRIL40 MG PO (12:51)
--- NOTE | 2019-01-23 13:32 | NUR ---
NUTRITION F/U CHART REVIEWED. PT VISIT. GOOD INTAKE REG DIET. WILL CONTINUE TO HONOR FOOD PREFERENCES, MONITOR PO INTAKE. RD FOLLOWING
--- NOTE | 2019-01-23 13:36 | MORECARE ---
CASE MANAGEMENT DISCHARGE SUMMARY PATIENT: SANFORD MARKS UNIT: [id number] ADM DATE: 01/19/19 AGE: 33 : 81 SEX: M ROOM/BED: D.2203 AUTHOR: KEENAN PATEL PHYSICIAN: REFERRING PHYSICIAN: BONITA ZHU MD DATE OF SERVICE: 01/23/19 Discharge Plan Patient Name: SANFORD MARKS [facility] [facility] 1985 Planned Disposition: Home Anticipated Discharge Date: Discharge Date: Expected LOS: Initial Reviewer: [email or web address] Initial Review Date: 01/18/2019 Generated: 01/23/19 2:36 pm Comments DCP- Discharge Planning Updated by [email or web address]: Marcelina Wade on 01/23/19 12:[address] Patient going home today, denies any needs. CM to follow and assist with DC planning DCP- Discharge Planning Updated by [email or web address]: Lucinda Randall on 01/21/19 5:[address] LATE ENTRY PATIENT REQUESTED THIS EARLY PM TO SEE STUDIO OPERATION ENGINEER. VISITED AT THE BEDSIDE. HE WANTED TO BEGIN PAPERWORK FOR MEDICAID. CM ADVISED MED DATA WILL ASSIST . TC TO MED DATA . SPOKE WITH HUMA. SHE STATES THE PATIENT IS OVER RESOURCE. PATIENT B/P HAS BEEN INCREASING. PRIMARY NURSE REPORTS IT WAS 199/138. CM DID NOT DISCUSS MED DATA INFORMATION AT THIS TIME. HE IS VERY CONCERNED ABOUT INSURANCE. DID NOT WISH TO CONTRIBUTE ANY ADDITIONAL STRESS. Last DP export: 01/22/19 12:59 pm Patient Name: SANFORD MARKS Page [phone] at 1336 All edits/amendments must be made on the electronic document DICTATION DATE: 01/23/19 1336 FIRE DEPARTMENT BATTALION CHIEF: KEVIN 01/23/19 1336 RPT#: [id number] DC DATE: STATUS: ADM IN [facility] [address] [place] [address] END OF REPORT
[2019-01-23] MEDS ORDERED: SOMA350 MG PO (15:16)
--- NOTE | 2019-01-23 16:16 | MORECARE ---
CASE MANAGEMENT DISCHARGE SUMMARY PATIENT: SANFORD MARKS UNIT: [id number] ADM DATE: 01/19/19 AGE: 33 : [birth year] SEX: M ROOM/BED: D.2203 AUTHOR: KEENAN PATEL PHYSICIAN: REFERRING PHYSICIAN: BONITA ZHU MD DATE OF SERVICE: 01/23/19 Discharge Plan Patient Name: SANFORD MARKS [facility] : 1985 Planned Disposition: Home Anticipated Discharge Date: Discharge Date: 01/23/2019 Expected LOS: 0 Initial Reviewer: [email or web address] Initial Review Date: 01/18/2019 Generated: 01/23/19 5:16 pm Comments DCP- Discharge Planning Updated by [email or web address]: Marcelina Wade on 01/23/19 12:[address] Patient going home today, denies any needs. CM to follow and assist with DC planning DCP- Discharge Planning Updated by [email or web address]: Lucinda Randall on 01/21/19 5:[address] LATE ENTRY PATIENT REQUESTED THIS EARLY PM TO SEE VETERINARY MANAGER. VISITED AT THE BEDSIDE. HE WANTED TO BEGIN PAPERWORK FOR MEDICAID. CM ADVISED MED DATA WILL ASSIST . TC TO MED DATA . SPOKE WITH HUMA. SHE STATES THE PATIENT IS OVER RESOURCE. PATIENT B/P HAS BEEN INCREASING. PRIMARY NURSE REPORTS IT WAS 199/138. CM DID NOT DISCUSS MED DATA INFORMATION AT THIS TIME. HE IS VERY CONCERNED ABOUT INSURANCE. DID NOT WISH TO CONTRIBUTE ANY ADDITIONAL STRESS. Last DP export: 01/23/19 12:36 pm Patient Name: SANFORD MARKS Page [id number] at 1616 All edits/amendments must be made on the electronic document DICTATION DATE: 01/23/19 1615 [employer]FFERDAM CONSTRUCTION SUPERVISOR: KEVIN 01/23/19 1615 RPT#: [id number] DC DATE:01/23/19 STATUS: DIS IN [facility] [address] [place] [address] END OF REPORT
== END 2019-01-23 15:44 | disposition home or self-care (01) | DRG 565 ==
LOC: D.ER 02:35 → D.MS 07:14 → OBSVTIME 07:14 → D.MS 01-19 08:40
PROVIDERS: Family Medicine; ADMIT Internal Medicine Nephrology; ATTEND Internal Medicine Nephrology
DX: T79.6XXA Traumatic ischemia of muscle, initial encounter (principal); N17.9 Acute kidney failure, unspecified; I10 Essential (primary) hypertension; S43.492A Other sprain of left shoulder joint, initial encounter; I16.0 Hypertensive urgency

== ENCOUNTER → 2019-02-06 15:38 | Outpatient (CLI) | payer SELFPAY ==
[2019-01-20 10:17] VITALS: BMI 35.2
[~2019-02-06 15:38] MED LIST changes: +ACETAMINOPHEN325 MG PO; +LISINOPRIL40 MG PO; +NORCO-10 PO; +NORVASC10 MG PO; +SOMA350 MG PO
== END | disposition home or self-care (01) ==
LOC: D.MRI 15:30
PROVIDERS: ATTEND Orthopaedic Surgery
DX: M25.512 Pain in left shoulder (principal)

== ENCOUNTER 2019-05-07 09:57 | Day surgery (SDC) | payer MEDICAID ==
--- NOTE | 2019-05-03 17:04 | HP ---
PATIENT: SANFORD MARKS MEDICAL RECORD: [id number] ACCOUNT: [id number] LOCATION:[facility] : 81 ADMISSION DATE: 05/07/19 PCP: TROY SIFUENTES MD HISTORY AND PHYSICAL EXAMINATION PREOPERATIVE HISTORY AND PHYSICAL HISTORY OF PRESENT ILLNESS: Sanford is 34 years old. He is having problems with nasal obstruction, sleep apnea, inability to tolerate CPAP because of nasal obstructions and refractory to medical management. He is being admitted for septoplasty, bilateral turbinate reduction, and tonsillectomy. PAST MEDICAL HISTORY: Includes hypertension, coronary artery disease, reactive airway disease. PAST SURGICAL HISTORY: Open heart surgery 6 years old. ALLERGIES: TO PENICILLIN. PHYSICAL EXAMINATION: GENERAL: Healthy-appearing, developmentally normal. FACE: Normal, symmetric, no lesions. EYES: Sclerae and conjunctivae are normal. EARS: Canals and TMs are normal. NOSE: Septal deviation, large turbinates. ORAL CAVITY AND OROPHARYNX: A 3-4+ thick tonsils, normal palate. NECK: No masses, no adenopathy. CHEST: Clear. CARDIOVASCULAR: Regular rate and rhythm, no murmur. EXTREMITIES: Normal. IMPRESSION: Sleep apnea, nasal obstruction, septal deviation, turbinate hypertrophy, chronic tonsillitis, and tonsillar hypertrophy. PLAN: Septoplasty, bilateral inferior turbinate reduction, tonsillectomy. TRANSINT:[id number] Voice Confirmation ID: [id number] DOCUMENT ID: [id number] EZIO DUVAL MD at 1704 CC: [id number] DICTATION DATE: 05/03/19 1528 TRAFFIC LAW ATTORNEY: 05/03/19 1552 [facility] [address] [place] [id number]
[~2019-05-07] VITALS: Ht 170.2 cm; Wt 106.6 kg
[2019-05-07 11:12] VITALS: BP 104/80; Ht 170.2 cm; Wt 106.6 kg
--- NOTE | 2019-05-07 14:04 | NUR ---
ARMS ACROSS CHEST AND PAPOOSEDCLOVIS.
--- NOTE | 2019-05-09 12:58 | OP ---
PATIENT NAME: SANFORD MARKS MEDICAL RECORD: [id number] :81 LOCATION:[facility] ADMISSION DATE: SURGEON: EZIO VEGA MD DATE OF OPERATION: 05/07/2019 PREOPERATIVE DIAGNOSES: Nasal obstruction, chronic tonsillitis, septal deviation, and turbinate hypertrophy. POSTOPERATIVE DIAGNOSES: Nasal obstruction, chronic tonsillitis, septal deviation, and turbinate hypertrophy. PROCEDURES: Septoplasty, bilateral inferior turbinate reduction, and tonsillectomy. SURGEON: Ezio Vega MD ANESTHESIA: General orotracheal. BLOOD LOSS: Less than 10 cc. SPECIMENS: Right and left tonsils. PACKING: Nasal Ward splints bilaterally in the nose. COMPLICATIONS: None. DISPOSITION: Recovery, stable. DESCRIPTION OF PROCEDURE: He was brought to the operating room, placed in the supine position, sedated and intubated by anesthesia. Eyes were taped. Table was turned 90 degrees. Head drape was applied and he was positioned. Using headlight and nasal speculum, the nose was examined, both sides of the nose. The septum, floor of the nose, and turbinates were injected with a total of 1.5 cc of 1% lidocaine with 1.5-inch 27-gauge needle. Then, 2 Afrin pledgets were placed in each side of the nose. Using a headlight, a Praneeth-Lan mouth gag was carefully inserted and elevated on a towel on his chest. The palate was examined and palpated, it was normal. A red rubber catheter was placed through the right side of the nose, past the pledgets into the pharynx, and grasped with tonsil clamp to retract the soft palate. Using a mirror, the nasopharynx was examined. Suction cautery was used to cauterize a small amount of adenoid tissue in the posterior aspect of the inferior turbinates. The red rubber catheter was let down and removed. The right tonsil was grasped at superior pole of deeply pocketed cryptic tonsils with tonsilliths. Spatula tip cautery on a setting of 8 was used to dissect out the tonsil along its capsule, preserving the anterior and posterior tonsillar pillar. The left tonsil was removed in the same fashion. Then, both sides of the nose were irrigated with saline. The pharynx was suctioned. Tonsillar fossae were agitated. Suction cautery on a setting of 18 was used to control minimal oozing. With the field clean and dry, the Praneeth-Lan mouth gag was let down and removed. All the Afrin pledgets had been removed from the nose. Both sides of the nose were examined. Right-sided Kiko incision was made. Ipsilateral mucoperichondrial flap was made. The septum was from the maxillary spine. Some redundant portion of the cartilage was removed with the caudal. The bony cartilaginous junction was disarticulated and some relaxing incisions were made. This allowed the septum to fall back to the midline. The Brainard incision was OPERATIVE REPORT [id number] SANFORD MARKS closed with interrupted 4-0 chromic. Then, both inferior turbinates were medialized with a freer. A Gruenwald was used to take down the redundant inferior portion of the turbinate. Suction cautery on a setting of 25 was used to control any bleeding. They were both outfractured with a [place] elevator. The nasopharynx was suctioned on both sides. Then, Ward splints were placed bilaterally with some mupirocin ointment and sutured to the anterior membranous septum with a 2-0 Prolene on a Roldan needle. He was awakened, extubated, and transported to recovery in good condition. No complications. TRANSINT:[id number] Voice Confirmation ID: [id number] DOCUMENT ID: [id number] EZIO VEGA MD at 1258 CC: [id number] DICTATION DATE: 05/07/19 145 PATROL MAN: 05/07/19 190 [facility] 05/07/19 [facility] [address] [place] [address]
== END 2019-05-07 17:30 | disposition home or self-care (01) ==
LOC: D.OPS 09:57 → D.PAN 14:15 → D.OPS 17:30
PROVIDERS: ATTEND Otolaryngology
DX: J34.2 Deviated nasal septum (principal); J35.01 Chronic tonsillitis; J34.3 Hypertrophy of nasal turbinates

== ENCOUNTER 2019-05-08 19:43 | Emergency (ER) | payer MEDICAID ==
[~2019-05-08] VITALS: Ht 170.2 cm; Wt 107.3 kg
[2019-05-08 20:00] VITALS: Ht 170.2 cm; Wt 107.3 kg
[2019-05-08 21:44] LABS: BASOPHILS 0.1 % (0-2); EOSINOPHILS 0.1 % (0-7); HEMATOCRIT 40.9 % (42.0-54.0); HEMOGLOBIN 14.8 g/dL (13.5-17.5); IMMATURE GRANULOCYTES 0.2 % (0-5); MCH 31.4 pg (26.0-34.0); MCHC 36.2 g/dL (31.0-37.0); MCV 86.8 fL (80.0-100.0); MEAN PLATELET VOLUME 10.5 fL (7.4-10.4); MONOCYTES 7.2 % (2-11); NEUTROPHILS 79.4 % (40-80); PLATELET COUNT 290 10x3/uL (130-400); RBC 4.71 10x6/uL (4.20-6.10); RDW 13.1 % (11.5-14.5)
[2019-05-08 21:56] LABS: CALC OSMOLALITY 279 mosm/kg (275-300); CALCIUM 9.2 mg/dL (8.5-10.1); CARBON DIOXIDE 26.4 mmol/L (21.0-32.0); CHLORIDE - SERUM 99 mmol/L (98-107); GLUCOSE 108 mg/dL (74-106); POTASSIUM - SERUM 3.5 mmol/L (3.5-5.1); SODIUM 139 mmol/L (136-145); UREA NITROGEN 14 mg/dL (7-18); eGFR NON AFRICAN AMERICAN 90 mL/min (90-120)
[2019-05-08 22:48] VITALS: BP 144/65
== END 2019-05-08 22:48 | disposition home or self-care (01) ==
LOC: D.ER 19:43
PROVIDERS: Family Medicine
DX: G89.18 Other acute postprocedural pain (principal)

== ENCOUNTER → 2019-07-02 12:15 | Outpatient (CLI) | payer MEDICAID ==
[2019-05-08 20:00] VITALS: BMI 37.0
== END | disposition home or self-care (01) ==
LOC: D.MRI 12:15
PROVIDERS: ATTEND Orthopaedic Surgery
DX: G54.0 Brachial plexus disorders (principal)

== ENCOUNTER → 2019-08-16 09:56 | Outpatient (CLI) | payer MEDICAID ==
[2019-05-08 20:00] VITALS: BMI 37.0
== END | disposition home or self-care (01) ==
LOC: D.MRI 09:56
PROVIDERS: ATTEND Clinical Nurse Specialist Family Health
DX: M54.12 Radiculopathy, cervical region (principal)

== ENCOUNTER 2019-09-15 12:24 | Emergency (ER) | payer MEDICAID ==
[~2019-09-15] VITALS: Ht 170.2 cm; Wt 97.7 kg
[2019-09-15 12:30] VITALS: Ht 170.2 cm; Wt 97.7 kg
[2019-09-15 13:10] LABS: BASOPHILS 0.3 % (0-2); EOSINOPHILS 3.2 % (0-7); HEMATOCRIT 46.3 % (42.0-54.0); HEMOGLOBIN 16.1 g/dL (13.5-17.5); IMMATURE GRANULOCYTES 0.2 % (0-5); LYMPHOCYTES 36.5 % (15-50); MCH 31.8 pg (26.0-34.0); MCHC 34.8 g/dL (31.0-37.0); MCV 91.3 fL (80.0-100.0); MEAN PLATELET VOLUME 10.4 fL (7.4-10.4); NEUTROPHILS 53.8 % (40-80); PLATELET COUNT 298 10x3/uL (130-400); RBC 5.07 10x6/uL (4.20-6.10); RDW 12.6 % (11.5-14.5); WBC 6.5 10x3/uL (4.8-10.8)
[2019-09-15 13:17] LABS: CALC OSMOLALITY 282 mosm/kg (275-300); CALCIUM 9.4 mg/dL (8.5-10.1); CARBON DIOXIDE 30.1 mmol/L (21.0-32.0); CHLORIDE - SERUM 104 mmol/L (98-107); CREATININE - SERUM 1.1 mg/dL (0.6-1.3); GLUCOSE 95 mg/dL (74-106); POTASSIUM - SERUM 4.1 mmol/L (3.5-5.1); SODIUM 142 mmol/L (136-145); UREA NITROGEN 13 mg/dL (7-18); eGFR NON AFRICAN AMERICAN 80 mL/min (90-120)
[2019-09-15 13:18] LABS: APTT 29.4 SECONDS (22.8-39.4); INR 1.09 (0.85-1.17); PROTIME 13.6 SECONDS (11.6-15.0)
[2019-09-15 13:32] LABS: ALKALINE PHOSPHATASE 96 U/L (46-116); ALT (SGPT) 34 U/L (10-68); BILIRUBIN - TOTAL 0.41 mg/dL (0.2-1.3); CKMB 0.8 U/L (0.0-3.6); CREATINE KINASE 142 UL (21-232); MAGNESIUM - SERUM 1.9 mg/dL (1.8-2.4); PROTEIN - SERUM 8.6 g/dL (6.4-8.2); THYROID STIMULATING HORMONE 1.49 uIU/mL (0.36-3.74)
[2019-09-15 13:33] LABS: TROPONIN-I < 0.017 ng/mL (0.000-0.060)
[2019-09-15] MEDS ORDERED: VALTREX1000 MG PO (14:25)
[2019-09-15] MEDS ORDERED: STERAPRED DS 1010 MG PO (14:25)
[2019-09-15 14:32] VITALS: BP 118/68
== END 2019-09-15 14:32 | disposition home or self-care (01) ==
LOC: D.ER 12:24
PROVIDERS: Family Medicine
DX: G51.0 Bell's palsy (principal); I10 Essential (primary) hypertension

== ENCOUNTER → 2020-05-06 09:53 | Outpatient (CLI) | payer MEDICAID ==
[2019-09-15 12:30] VITALS: BMI 33.7
[~2020-05-06 09:53] MED LIST changes: +IBUPROFEN800 MG PO; +NEURONTIN 400400 MG PO; +STERAPRED DS 1010 MG PO; +VALTREX1000 MG PO
== END | disposition home or self-care (01) ==
LOC: D.LABREF 09:53
PROVIDERS: ATTEND Internal Medicine Pulmonary Disease
DX: Z11.59 Encounter for screening for other viral diseases (principal)

== ENCOUNTER 2020-05-08 07:05 | Day surgery (SDC) | payer MEDICAID ==
[2020-05-06 11:00] LABS: HEMATOCRIT 41.9 % (42.0-54.0); HEMOGLOBIN 14.2 g/dL (13.5-17.5); MCH 30.9 pg (26.0-34.0); MCHC 33.9 g/dL (31.0-37.0); MCV 91.3 fL (80.0-100.0); RBC 4.59 10x6/uL (4.20-6.10); RDW 12.8 % (11.5-14.5); WBC 3.8 10x3/uL (4.8-10.8)
[2020-05-08] VITALS (10 sets, daily range): BP systolic 109–139; BP diastolic 63–87; Ht 170.2 cm; Wt 109.5 kg
[~2020-05-08] VITALS: Ht 170.2 cm; Wt 109.5 kg
--- NOTE | 2020-05-08 12:59 | NUR ---
NO NUMBNESS OR TINGLING REPORTED EQUAL STRENGHTS ALL 4 EXTREMETIES
--- NOTE | 2020-05-08 13:50 | NUR ---
PT ARRIVED ON UNIT ACCOMPANIED BY PACU NURSE. HOOKED UP TO ICU MONITOR. VITAL SIGNS OBTAINED. RT NECK DRESSING NOTED CDI. PT ALERT AND ORIENTED. WILL CONTINUE TO MONITOR
--- NOTE | 2020-05-08 15:00 | NUR ---
PT RESTING IN BED. NO ACUTE SIGNS OF DISTRESS NOTED. VSS. WILL CONTINUE TO MONITOR
--- NOTE | 2020-05-08 17:45 | NUR ---
PT RESTING IN BED. REQUESTED GLASSES AND PHONE. PROVIDED FROM PT BAG. NO COMPLAINTS NOTED AT THIS TIME. VSS. WILL CONTINUE TO MONITOR
--- NOTE | 2020-05-08 19:24 | NUR ---
RECEIVED TO ROOM CV08. MONITORS CONNECTED TO PATIENT WITH ALARMS SET. VSS. ASSESSMENT COMPLETED PER FLOW SHEET WTIH NO ACUTE DISTRESS OBSERVED. ORIENTED TO ROOM. CALL LIGHT IN REACH AND ABLE TO UTILIZE TO MAKE NEEDS KNOWN
--- NOTE | 2020-05-08 21:00 | NUR ---
AWAKE AND ALERT. FAMILY AT BEDSIDE. VSS. CALL LIGHT IN REACH
--- NOTE | 2020-05-08 23:00 | NUR ---
REASSESSMENT COMPLETED PER FLOW SHEET WITH NO ACUTE DISTRESS OBSERVED. VSS. CALL LIGHT IN REACH
[2020-05-09] VITALS (11 sets, daily range): BP systolic 99–137; BP diastolic 58–84
--- NOTE | 2020-05-09 03:00 | NUR ---
REASSESSMENT COMPLETED PER FLOW SHEET WITH NO ACUTE DISTRESS OBSERVED. VSS. CALL LIGHT IN REACH
--- NOTE | 2020-05-09 05:00 | NUR ---
AWAKE AND ALERT. VSS. CALL LIGHT IN REACH
[2020-05-09] MEDS ORDERED: HYDROCODON-ACE1 EA10 PO (10:08)
[2020-05-09] MEDS ORDERED: MEDROL DOSE PACK4 MG PO (10:27)
--- NOTE | 2020-05-09 11:37 | NUR ---
0700-RECIEVED PER FLOW SHEET-AWAKE AND ALERT-NOTED USING WHISPER VOICE ONLY-ABLE TO UNDERSTAND-THROAT HOARSE AND PAINFUL TO SWALLWO-NO VISUAL LIMB DEFICITS NOTED -GUARDING TO L SHOULDER AND ARM FOR PAIN-NOTED R NECK INCISION-INTACT WITH NO DRAINAGE OR VISUAL EDEMA-NOTED CLEAR TRACHEAL AIRWAY WITH AUSCULTATION 0830-FULL LIQUIDS TAKEN WITH DIFFICULTY 0930-TONG HOOKER ROUNDING FOR ANESTHESIA-INFORMED OF SAME-REGARDING HOARSE AND DIFFICULT SWLLOWING- 1030-DR MALDONADO AT BEDSIDE-MADE AWARE OF HOARSE AND DIFFICULTY SWALLOWING 1100-DISCHARGE ORDER NOTED-R PERIPHERAL D/C'D-ENCOURAGED TO AMBULATE IN BEFORE DISCHRGING-NOTED SMALL BALANCE DIFFICULTY- 1120-FRIEND AT BEDSIDE FOR STEAM FITTER HELPER-CERVICAL COLLAR PLACED FOR DISCHARGED AND DIRECTIONS GIVEN-BELOW CHIN BONE AND AT SHOULDER LEVEL-TAKE OFF WHEN RESTING-WEAR IF DOING ANY HEAD DROPPING ACTIVITY-STANDING WASHING DISHES-COMPUTER -OXYCODONE 5MG 2 TABS GIVEN FOR C/O 06/30 1140-REVIEWED DISCHARGE INSTRUCTIONS WITH PT AND FRIEND PRESENT-DISCHARGED VIA WHEELCHAIR
--- NOTE | 2020-05-20 13:10 | OP ---
PATIENT NAME: SANFORD MARKS MEDICAL RECORD: [id number] :81 LOCATION:D.OPS ADMISSION DATE: SURGEON: HAMMAD ALEXANDRA MD DATE OF OPERATION: 05/08/2020 PREOPERATIVE DIAGNOSES: Osteophyte formation and disc herniation at C3-C4 and C4-C5. POSTOPERATIVE DIAGNOSES: Osteophyte formation and disc herniation at C3-C4 and C4-C5. PROCEDURE: Anterior cervical discectomy and fusion at C3-C4 and C4-C5 with PEEK interbody cages, bone stem cells with separate PEEK interbody cages, separate anterior cervical plate and screws from [employer]. SURGEON: Hammad Alexandra MD BOY'S ADVISER: Inderjit Kendrick APN DESCRIPTION AND TECHNIQUE: After induction of general endotracheal anesthesia, the patient was positioned supine on the operating table. Neck was prepped and draped in usual sterile fashion. Fluoroscopic x-ray and [place] dissector localized the C3-C4 interspace. After infiltration of 1:100,000 epinephrine with 1% lidocaine, a transverse skin incision was carried out from the midline to the sternocleidomastoid muscle. The platysma was divided with a #15 blade. Using blunt and sharp dissection with Metzenbaum scissors, I proceeded in the avascular plane medial to the carotid sheath. Following this, the C3-C4 interspace was identified with fluoroscopic x-ray and a spinal needle. The longus colli muscles were elevated from bodies of C3, C4, and C5. A self-retaining retractor was placed deep to the longus colli muscles. [place] distracting pins were placed in the bodies of C3, C4, and C5. The disc space was incised under distraction at C3-C4 and C4-C5. The cartilaginous endplate was removed with curettes and pituitary rongeurs. Osteophytes were drilled away posteriorly with Midas-David drill and a microscope. Following this, at C3-C4 and C4-C5, the posterior longitudinal ligament was removed with Cloward rongeurs. Following this, the dura was decompressed well. A PEEK interbody cage was placed at the C3-C4 and C4-C5 interspaces under distraction. Prior to this, each cage was filled with bone stem cells using Paula bone allograft. Next, a separate anterior cervical plate and screws was used to span the C3-C4 and C4-C5 interspaces. [employer] was manufacture of the plate and screws. The locking cams were tightened down over the screw heads. Good position of the hardware was confirmed with fluoroscopic x-ray. Meticulous hemostasis was maintained throughout the wound. Inderjit Kendrick was assisted in retraction during the procedure and assisted with placement of the hardware during the entirety of the procedure. Meticulous hemostasis was maintained throughout the wound. The wound was irrigated with copious amounts of Ancef irrigant solution. The platysma and subdermal layer closed with interrupted 3-0 Vicryl suture. The skin was reapproximated with Steri-Strips and benzoin. A sterile dressing was applied to the wound. The patient was awakened in good condition and taken to recovery. All counts were reported as correct. Estimated blood loss was minimal. TRANSINT:[id number] Voice Confirmation ID: [id number] DOCUMENT ID: [id number] OPERATIVE REPORT [id number] SANFORD MARKS JOHN MD at 1310 CC: [id number] DICTATION DATE: 05/20/20 1055 [place]: 05/20/20 1159 [facility] 05/09/20 [id number] [place] [address]
== END 2020-05-09 11:47 | disposition home or self-care (01) ==
LOC: D.OPS 07:05 → D.PAN 07:30 → D.OPS 07:30 → D.ICU 13:19 → D.CVICU 21:24 → D.OPS 05-09 11:47
PROVIDERS: Anesthesiology; ATTEND Neurological Surgery
DX: M25.78 Osteophyte, vertebrae (principal); M50.20 Other cervical disc displacement, unspecified cervical region